=== PATIENT | male | born 1995 | race Caucasian/White ===

== ENCOUNTER 2017-07-12 04:53 | Emergency (ER) | payer OTHER ==
[2017-07-12 05:07] VITALS: BP 145/74; PULSE 74; RESP 16; TEMP 97.9; O2SAT 96
--- NOTE | 2017-07-12 06:19 | EDPHY ---
H & P Stated Complaint: finger and hand laceration after punching window-+Etoh HPI/ROS: HPI The patient presents brought in by ambulance for alcohol intoxication and right hand lacerations. It seems that the patient drink alcohol tonight and then punched an unknown object, possibly a glass window just prior to arrival. He was found by the police wandering around and they called paramedics. The patient admits to drinking several alcoholic drinks and initially stated that he used MDMA, however now denies this. He has sustained 2 lacerations to his right hand. He does not have any numbness or tingling of his hand.. REVIEW OF SYSTEMS Constitutional: No fever, no chills. Eyes: No discharge. ENT: No sore throat. Cardiovascular: No chest pain, no palpitations. Respiratory: No cough, no shortness of breath. Gastrointestinal: No abdominal pain, no vomiting. Genitourinary: No hematuria. Musculoskeletal: No back pain. Skin: No rashes. Neurological: No headache. 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, positive alcohol use PHYSICAL General Appearance: Alert, obviously intoxicated Eyes: Pupils equal and 6 mm, no pallor or injection ENT, Mouth: Mucous membranes moist Respiratory: There are no retractions, lungs are clear to auscultation Cardiovascular: Regular rate and rhythm Gastrointestinal: Abdomen is soft and non-tender, no masses, bowel sounds normal Neurological: A&O, moves all extremities Skin: Warm and dry, no rashes Musculoskeletal: Neck is supple non tender Extremities: Right hand with 2 cm laceration of the dorsum in between the 4th and 5th metacarpals, this is superficial with no tendon involvement; right pinky with laceration approximately 1 cm, transverse, overlying the extensor surface of the DI P, he is there is no extension at the DI P, sensation is intact to light touch and cap refill is brisk Psychiatric: Patient is oriented X 3, there is no agitation Source: Patient, EMS Exam Limitations: Intoxication - Personal History Current Tetanus Diphtheria and Acellular Pertussis (TDAP): Unsure - Medical/Surgical History Hx Asthma: No Hx Chronic Respiratory Disease: No Hx Diabetes: No Hx Cardiac Disease: No Hx Renal Disease: No Hx Cirrhosis: No Hx Alcoholism: No Hx HIV/AIDS: No Hx Splenectomy or Spleen Trauma: No Other PMH: denies - Social History Smoking Status: Never smoked Constitutional: Initial Vital Signs Temperature (C) 36.6 C 07/12/17 05:02 Heart Rate 74 07/12/17 05:02 Respiratory Rate 16 07/12/17 05:02 Blood Pressure 145/74 H 07/12/17 05:02 O2 Sat (%) 96 07/12/17 05:02 O2 Delivery Mode Room Air Allergies/Adverse Reactions: No Known Allergies Allergy (Unverified 07/12/17 05:02) Home Medications: Medication Instructions Recorded NK [No Known Home Meds] 07/12/17 Medical Decision Making - Diagnostics Imaging Results: X-ray right hand three view shows no fracture, no dislocation, no foreign body, interpreted by me, radiology interpretation is pending. Imaging: I viewed and interpreted images myself Procedures: LACERATION REPAIR Procedure: Laceration repair. Verbal consent was obtained from the patient. The linear 2 cm laceration on the right hand dorsum was anesthetized using bupivacaine 0.5%. The wound was scrubbed, draped and explored to its base with a gloved finger. There were no deep structures involved. No tendon injury was identified. . The wound was repaired with 5 sutures of 4-0 nylon. The wound repair was simple. The procedure was performed by myself. LACERATION REPAIR Procedure: Laceration repair. Verbal consent was obtained from the patient. The linear 2 cm laceration on the right 5th digit at to the DI P extensor surface was anesthetized using digital block of bupivacaine 0.5% total of 1 mL. The wound was scrubbed, draped and explored to its base with a gloved finger. There were no deep structures involved. Extensor tendon injury is suspected . The wound was repaired with 5 sutures of 4-0 nylon. The wound repair was simple. The procedure was performed by myself. Differential Diagnosis: This is a 22-year-old male who presents brought in by ambulance for alcohol intoxication and right hand injury after likely cutting his hand on a glass window, though he does not fully recall what happened. Differential diagnosis includes hand laceration, extensor tender laceration, foreign body. In the emergency department, the patient was observed, wounds were anesthetized and irrigated and repaired. He does have a mallet finger deformity of his right pinky and I suspect that he has extensor tendon injury. Because of this I have placed him in a finger splint in extension and have given him Hand surgery on-call follow-up. He sobered in the emergency department and then felt well enough to go home. Departure - Departure Disposition: Home, Routine, Self-Care Clinical Impression: Laceration of right hand, Laceration of right little finger, Mallet finger of right finger(s), Alcohol intoxication delirium Condition: Good Instructions: Care For Your Stitches (ED), Laceration (ED) Additional Instructions: Please return to the emergency room if you develop any redness, swelling, increased pain of your hand. Because there is concern for a tendon injury, you must follow up with the hand specialist. Please keep the splint on until then. Please call on Thursday to arrange for an appointment in the next few days. Your sutures should come out in 1 week, you can return to the emergency room for this or follow up with your regular doctor. Referrals: Eligio Chapa MD [Medical Doctor] - As per Instructions
== END 2017-07-12 09:14 | disposition home or self-care (01) ==
PROC: 0HQFXZZ Repair Right Hand Skin, External Approach (ICD-10-PCS; principal; 2017-07-12)
DX: S61.411A Laceration without foreign body of right hand, initial encounter (principal); S61.216A Laceration without foreign body of right little finger without damage to nail, initial encounter; M20.011 Mallet finger of right finger(s); F10.121 Alcohol abuse with intoxication delirium; W22.8XXA Striking against or struck by other objects, initial encounter

== ENCOUNTER 2017-07-20 15:30 | Emergency (ER) | payer OTHER ==
[2017-07-20 15:37] VITALS: BP 136/75; PULSE 86; RESP 16; TEMP 97.7; O2SAT 96
--- NOTE | 2017-07-20 16:23 | EDPHY ---
General Narrative: CHIEF COMPLAINT: Recheck of hand lacerations HISTORY OF PRESENT ILLNESS: Patient returns for recheck of hand lacerations. These were sustained 8 days ago when he punched through a window. He denies any fight bite injury. He was seen here and treated laceration repair in x-rays. Hand laceration is uncomplicated and he is asking for the sutures to come out. The finger laceration appears infected him. He has baseline mallet finger thus range of motion is limited in unchanged from this. Some redness around it. He feels there has been some pus extruding. No fever. No pain. No other associated complaints or modifying factors. He has not yet been seen by hand surgeon. TIME OF INJURY: Eight days ago TETANUS STATUS: Up-to-date MEDICAL/SURGICAL/SOCIAL HISTORY: Reviewed REVIEW OF SYSTEMS: Ten systems reviewed and are negative unless otherwise noted in the HPI EXAMINATION General Appearance: Alert, no distress Head: normocephalic, atraumatic Cardiovascular: Pulses normal throughout. Symmetric radial pulses. Brisk cap refill Neurological: A&O, sensory symmetric, strength symmetric. Good strength of the interossei. Skin: Warm and dry, no rash. There is laceration to the dorsum of the right hand that is suture repaired. These are clean, dry and intact. Ready for removal. Laceration of the right little finger, posterior over the distal phalanx. There is no purulence appreciated. There is some surrounding erythema. No warmth to the joint. No evidence of tenosynovitis or hand cellulitis. Extremities: Tenderness in the area of lacerations. Range of motion is intact. Baseline mallet finger on the right pinky. DIFFERENTIAL DIAGNOSES: Including but not limited to laceration, complex laceration, laceration with delayed healing, laceration with infection MDM: 4:20 p.m. Laceration of 8 days duration of hand day and little finger. The hand laceration is well-appearing. Sutures may be removed at this time. The finger laceration does have some erythema around it. There is minimal purulence around 1 of the sutures. There is no evidence of septic joint. No evidence of cellulitis or tenosynovitis. 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 I will DC 2 of those sutures, and We will irrigate the wound. We will place him on antibiotics and have him return in 48 hours for wound check. Return sooner for any change in the symptoms, warmth to the joint, difficulty flexing the finger. ED Precautions: Worsening pain. Erythema, edema, cyanosis, pallor, paresthesia or anesthesia. - History Smoking Status: Never smoked - Objective Vital Signs: Initial Vital Signs Temperature (C) 97.7 F 07/20/17 15:36 Heart Rate 86 07/20/17 15:36 Respiratory Rate 16 07/20/17 15:36 Blood Pressure 136/75 H 07/20/17 15:36 O2 Sat (%) 96 07/20/17 15:36 O2 Delivery Mode Room Air Allergies/Adverse Reactions: No Known Allergies Allergy (Unverified 07/12/17 05:02) Home Medications: Medication Instructions Recorded Amoxicillin/Clavulanate Pot 875 mg PO BID #14 tab 07/20/17 [Augmentin 875 MG TAB (*)] Departure - Departure Disposition: Home, Routine, Self-Care Clinical Impression: Laceration of right hand Qualifiers: Encounter type: subsequent encounter Foreign body presence: without foreign body Qualified Code(s): S61.411D - Laceration without foreign body of right hand , subsequent encounter Laceration of finger, right Qualifiers: Encounter type: subsequent encounter Finger: little finger Damage to nail status: without damage Foreign body presence: without foreign body Qualified Code(s): S61.216D - Laceration without foreign body of right little finger without damage to nail, subsequent encounter Condition: Good Instructions: Care For Your Stitches (ED), Laceration (ED) Additional Instructions: 1. Medications as prescribed to completion 2. Keep the wound clean, dry and covered 3. Return here in 48 hours for wound check 4. Return here for any increasing pain, warmth, fever Referrals: NONE *PRIMARY CARE P,. [Primary Care Provider] - As per Instructions Physician,Emergency Dept, [Medical Doctor] - As per Instructions Chas Cook MD [Medical Doctor] - As per Instructions Prescriptions: Amoxicillin/Clavulanate Pot [Augmentin 875 MG TAB (*)] 875 mg PO BID #14 tab
== END 2017-07-20 16:43 | disposition home or self-care (01) ==
DX: S61.216D Laceration without foreign body of right little finger without damage to nail, subsequent encounter (principal); S61.411D Laceration without foreign body of right hand, subsequent encounter; W25.XXXD Contact with sharp glass, subsequent encounter